=== PATIENT | male | born 2000 | race Caucasian/White ===

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

== ENCOUNTER 2018-06-04 01:48 | Emergency (ER) | payer MEDICAID ==
[~2018-06-04] VITALS: Ht 182.9 cm; Wt 78.0 kg
[2018-06-04 01:57] VITALS: BP 141/82
[2018-06-04] MEDS ORDERED: ACETAMINOPHEN 325MG TABLET PO SCH (03:53)
[2018-06-04] MEDS ORDERED: ACETAMINOPHEN 325MG TABLET ONE (04:31)
== END 2018-06-04 04:35 | disposition home or self-care (01) ==
LOC: ER 01:48
DX: S00.83XA Contusion of other part of head, initial encounter (principal); R51 Headache; Y04.2XXA Assault by strike against or bumped into by another person, initial encounter; Y93.89 Activity, other specified; Y92.89 Other specified places as the place of occurrence of the external cause; R03.0 Elevated blood-pressure reading, without diagnosis of hypertension
CPT/HCPCS: 99282